=== PATIENT | female | born 1990 | race African-American/Black ===

== ENCOUNTER 2022-08-30 19:00 | Emergency (ER) | payer MEDICAID ==
[2022-08-30 20:14] LABS: Bilirubin Neg (Negative); Blood, Urine 10 (Negative); Clarity Clear (Clear); Glucose, Urine (Dipstick) Normal (Negative); Ketone, Urine 5 mg/dL (Negative); Leukocyte 25 (Negative); Nitrite Negative (Negative); Protein, Urine (Dipstick) 15 mg/dl (Neg-Trace); Urobilinogen Normal mg/dL (Less than 2)
[2022-08-30 20:30] LABS: CAUTI Indications for Culture Pregnancy; RBC/HPF 0-3 HPF (0-3)
[2022-08-30 20:31] LABS: Bacteria/HPF Rare-Few HPF (None Seen); Yeast-Budding Rare HPF (None Seen)
[2022-08-30 20:32] LABS: Mucous/LPF Rare LPF (<2+)
[2022-08-30 20:33] LABS: Urine Culture Reflex Yes Yes
== END 2022-08-30 21:51 | disposition home or self-care (01) ==
LOC: CSHERS 19:00
DX: O98.812 Other maternal infectious and parasitic diseases complicating pregnancy, second trimester (principal); B37.31 Acute candidiasis of vulva and vagina; Z3A.18 18 weeks gestation of pregnancy
CPT/HCPCS: 36415; 76856; 80053; 81001; 83690; 85025; 87086; 87480; 87510; 87660

== ENCOUNTER 2022-12-03 16:34 | Day surgery (SDC) | payer MEDICAID, OTHER ==
[2022-12-03 17:13] VITALS: BMI 29.2
[2022-12-03] MEDS ORDERED: hydrALAZINE 20 MG/ML VIAL SLOW IVP PRN (17:46)
== END 2022-12-03 19:12 | disposition home or self-care (01) ==
LOC: CSHLD/OP 16:34
PROVIDERS: ATTEND Obstetrics & Gynecology
DX: O47.03 False labor before 37 completed weeks of gestation, third trimester (principal); Z3A.32 32 weeks gestation of pregnancy
CPT/HCPCS: 76815; 99282